=== PATIENT | female | born 1945 | race Caucasian/White ===

== ENCOUNTER 2016-07-25 07:01 | Inpatient (IN) | payer OTHER ==
--- NOTE | ~2016-07-25 | OP ---
Record Of Operation [facility] [address] [place]. [address] NAME: NADIA SPIVEY : 45 STATUS : [facility] PAT#: [id number] AGE: 70 ADM/REG DATE : 07/25/16 MR#: [id number] REPORT SERV DATE: 07/25/16 DICTATED BY: ADIN STANLEY DATE: 07/25/16 REPORT STATUS : Draft TRANSCRIBED BY: MODL DATE: 07/25/16 DATE OF PROCEDURE: 07/25/2016 SURGEON: Adin Stanley MD AGING DEPARTMENT SUPERVISOR: Aman. PREPROCEDURE DIAGNOSIS: Dehiscence of right AKA with necrotic wound edge and base. POSTPROCEDURE DIAGNOSIS: Dehiscence of right AKA with necrotic wound edge and base. PROCEDURE PERFORMED: 1. Debridement of skin, epidermis and subcutaneous tissue, less than 20 cm. 2. Debridement, sharp, of muscle and fascia, less than 20 cm. 3. VAC placement. ANESTHESIA: General. SPECIMENS: Necrotic tissue. ESTIMATED BLOOD LOSS: Minimal. COMPLICATIONS: None. INDICATIONS: Nadia Spivey is 70 years old. She recently had an AKA for severe PAD. She came back to the office with an open wound. We attempted wound care for this for several weeks, and it did not make progress. She was offered debridement with VAC placement. Risks, benefits, and alternatives were discussed. She understood and wished to proceed. OPERATIVE COURSE: The patient was brought to the operating room and placed in supine position on the operating room table. The patient had general anesthetic without complications. Right leg was prepped and draped in sterile fashion. A time-out was performed and identified correct patient, procedure, and site. We began by sharply debriding skin and subcutaneous tissue of the superior wound edge. We got this cleaned up and then controlled the bleeding with cautery. The deep base of the wound had fibrinous exudate as well as some fascia that needed to be debrided, this was done sharply. Once that was done, we used a pulse evacuator to pulse evacuate the wound. We pulse evacuated approximately 2 L of saline. We then fashioned a VAC to fit the wound, it was placed with benzoin and occlusive dressing. A track pad was placed and connected to the VAC machine, which worked appropriately and had no leak. The patient tolerated the procedure well. She was awakened and transferred to recovery in stable condition. [facility]/SARAI Record Of [place] [address] [place]. [address] NAME: NADIA SPIVEY : 45 STATUS : [facility] PAT#: [id number] AGE: 70 ADM/REG DATE : 07/25/16 MR#: [id number] REPORT SERV DATE: 07/25/16 DICTATED BY: ADIN STANLEY DATE: 07/25/16 REPORT STATUS : Draft TRANSCRIBED BY: MODL DATE: 07/25/16 Adin Stanley MD / [id number] CC: MD Amy Lee M.D.
--- NOTE | ~2016-07-25 | HP ---
History And Physical [place] [id number] [place]. [address] NAME: BRENNAN YUAN : 45 STATUS : ADM IN [facility]#: [id number] AGE: 70 ADM/REG DATE : 07/25/16 MR#: [id number] REPORT SERV DATE: 07/26/16 DICTATED BY: ADIN STANLEY DATE: 07/25/16 REPORT STATUS : Draft TRANSCRIBED BY: MODSeymour DATE: 07/25/16 DATE OF ADMISSION: 07/25/2016 SERVICE: Vascular. REASON FOR ADMISSION: Status post debridement of right AKA stump. HISTORY OF PRESENT ILLNESS: The patient is a 70-year-old lady who had an AKA done recently. She presented back to the office for a wound dehiscence. She was managed conservatively with dressing care and it has not improved. She was offered intervention. Risks, benefits and alternatives were discussed. PAST MEDICAL HISTORY: PAD, diabetes, hypertension, hyperlipidemia, vitamin B12 deficiency, osteoporosis, osteopenia, rheumatoid arthritis, depression, and GERD. PAST SURGICAL HISTORY: Includes bilateral knee replacement, right AKA, gallbladder removal, hysterectomy, right foot surgery, right elbow surgery, and left wrist surgery. SOCIAL HISTORY: Socially, she does not smoke, does not drink and she is . FAMILY HISTORY: Congestive heart failure in her mother, diabetes in her siblings, heart attack in her father. ALLERGIES: TO TAPE AND OXYCODONE. MEDICATIONS: Listed separately on the medication administration record. PHYSICAL EXAMINATION: GENERAL: The patient was supine in the stretcher. VITAL SIGNS: Her blood pressure was 147/80, her pulse was 71, respirations 18. Her oxygen saturation was 99%. She was pleasant without distress. CHEST: Clear to auscultation bilaterally. CARDIOVASCULAR: Regular rate and rhythm. ABDOMEN: Soft, nontender, nondistended without any obvious masses. HEENT: Her head was normocephalic, atraumatic. Her pupils were equal, round, reactive to light. SKIN: The right AKA had an opening with necrotic debris, both at the wound edge as well as deep in the wound. There was no pus or foul-smelling drainage. Remainder of her skin was intact. IMPRESSION AND PLAN: The patient is a 70-year-old. She will be admitted after debridement for a wound VAC placement. We will manage her diabetes in the hospital and we will restart her Xarelto. History And Physical [facility] [address] [place]. [address] NAME: BRENNAN YUAN : 45 STATUS : ADM IN PAT#: [id number] AGE: 70 ADM/REG DATE : 07/25/16 MR#: [id number] REPORT SERV DATE: 07/26/16 DICTATED BY: ADIN STANLEY DATE: 07/25/16 REPORT STATUS : Draft TRANSCRIBED BY: SARAI DATE: 07/25/16 [facility]/SARAI Adin Stanley MD / [id number] CC: MD Amy Lee M.D.
[~2016-07-25 07:01] MED LIST: ADVIL PO; AMARYL1 MG PO; ARAVA20 PO; ASAB PO; ASPERCREME TOP; CALCIUM PO; CALTRA600D PO; CARDCD120 PO; CORDARONE PO; CORICIDI2 OR; CORICIDI2 PO; CYANO1000T PO; FISH-EPA1000 MG PO; FORTAMET500 MG PO; GLUCOPHAGE1000 MG PO; IMOD PO; LIPITOR20 PO; LOP25 PO; LUTEIN ZEAXANTHIN PO; MICRONASE5 MG PO; NEUR300 PO; P5 PO; PCET PO; PLAQ200B PO; PLAVIX PO; PRAVAC PO; PRILO PO; PRINZIDE1 TA1 PO; ULTRAM50 PO; VITAMIN B-122500 MCG SL; VITAMIN D31000 UNIT PO; XARELTO20 MG PO; ZESTORETIC PO; [UNRECOGNIZED DRUG - OTHER]; [UNRECOGNIZED DRUG - OTHER] OPH
[2016-08-27] MEDS ORDERED: PACERONE100 MG PO (15:49)
[2016-09-26] MEDS ORDERED: ZOFRAN4 PO (12:59)
[2016-11-04] MEDS ORDERED: KAYEXUD PO (17:34)
[2016-11-04] MEDS ORDERED: NEUR300 PO (17:35)
[2016-11-04] MEDS ORDERED: LIPITOR20 PO (17:35)
[2016-11-04] MEDS ORDERED: LEVAQUIN5T PO (17:37)
[2016-11-04] MEDS ORDERED: NEUR600 PO (17:38)
[2016-11-04] MEDS ORDERED: AMOXIL500 MG PO (17:39)
[2016-11-04] MEDS ORDERED: PRILOSEC OTC20 MG PO (17:40)
[2016-11-04] MEDS ORDERED: PLAQ200B PO (17:41)
[2016-11-04] MEDS ORDERED: LOP25 PO (17:41)
[2016-11-04] MEDS ORDERED: FERROUS SULF325 M1 PO (17:42)
[2016-11-04] MEDS ORDERED: VITC500 PO (17:42)
[2016-11-04] MEDS ORDERED: PACERONE100 MG PO (17:43)
[2016-11-04] MEDS ORDERED: CARDCD120 PO (17:43)
[2016-11-04] MEDS ORDERED: ACIDOPHILU2 PO (17:43)
[2016-11-04] MEDS ORDERED: P5 PO (17:44)
[2016-11-04] MEDS ORDERED: PRIN10 PO (17:44)
[2016-11-04] MEDS ORDERED: CYMBALTA30 PO (17:45)
[2016-11-04] MEDS ORDERED: MULTIPLE VIT PO (17:45)
[2016-11-04] MEDS ORDERED: HCTZ12.5 PO (17:45)
[2016-11-04] MEDS ORDERED: GLUCPH PO (17:46)
[2016-11-04] MEDS ORDERED: ARAVA20 PO (17:47)
[2016-11-04] MEDS ORDERED: ROCEPH IM (17:47)
[2016-11-04] MEDS ORDERED: HUMALOG SC (17:49)
[2016-11-04] MEDS ORDERED: ASABAYER PO (17:51)
[2016-11-04] MEDS ORDERED: ZOFRAN8 PO (17:52)
[2016-11-04] MEDS ORDERED: PERCOCET 10/3251 TAB PO (17:52)
[2016-11-07] MEDS ORDERED: IODOSORB TOP (17:41)
[2016-11-07] MEDS ORDERED: ACET500CAP PO (17:47)
[2016-11-19] MEDS ORDERED: NEUR300 PO (21:16)
[2016-11-19] MEDS ORDERED: LIPITOR20 PO (21:17)
[2016-11-19] MEDS ORDERED: NEUR600 PO (21:17)
[2016-11-19] MEDS ORDERED: FERROUS SULF325 M1 PO (21:17)
[2016-11-19] MEDS ORDERED: PRILOSEC40 MG PO (21:18)
[2016-11-19] MEDS ORDERED: VITC500 PO (21:18)
[2016-11-19] MEDS ORDERED: LOP25 PO (21:19)
[2016-11-19] MEDS ORDERED: PLAQ200B PO (21:19)
[2016-11-19] MEDS ORDERED: MULTIVITAMI1 PO (21:20)
[2016-11-19] MEDS ORDERED: PACERONE100 MG PO (21:20)
[2016-11-19] MEDS ORDERED: CYMBALTA60 PO (21:20)
[2016-11-19] MEDS ORDERED: P5 PO (21:21)
[2016-11-19] MEDS ORDERED: GLUCPH PO (21:22)
[2016-11-19] MEDS ORDERED: PRIN10 PO (21:22)
[2016-11-19] MEDS ORDERED: CARDCD120 PO (21:46)
[2016-11-19] MEDS ORDERED: HUMALOG SC (21:50)
[2016-11-19] MEDS ORDERED: ARAVA20 PO (21:50)
[2016-11-19] MEDS ORDERED: ASABAYER PO (21:52)
[2016-11-19] MEDS ORDERED: PERCOCET 10/3251 TAB PO (21:52)
[2016-12-25] MEDS ORDERED: DSS PO (11:32)
[2016-12-25] MEDS ORDERED: ZINC220C PO (11:33)
[2016-12-25] MEDS ORDERED: XOPEN0.5ML INH ×2 (11:35→11:46)
[2016-12-25] MEDS ORDERED: MUCINEX600 MG PO (11:36)
[2016-12-25] MEDS ORDERED: DULERA 200 MCG/13 GM INH (11:37)
[2016-12-25] MEDS ORDERED: VITC500 PO (11:38)
[2016-12-25] MEDS ORDERED: ACIDOPHILUS PO (11:39)
[2016-12-25] MEDS ORDERED: LOP25 PO (11:41)
[2016-12-25] MEDS ORDERED: ASA5GR PO (11:42)
[2016-12-25] MEDS ORDERED: IMDUR30 PO (11:48)
[2016-12-25] MEDS ORDERED: MIRALAX POWDER1 PKT PO ×2 (11:51→11:59)
[2016-12-25] MEDS ORDERED: SPIRIVA INH (11:52)
[2016-12-25] MEDS ORDERED: CYANO1000T PO (11:53)
[2016-12-25] MEDS ORDERED: ZOFRAN ODT4 MG SL (11:55)
[2016-12-25] MEDS ORDERED: V2 PO (11:56)
[2016-12-25] MEDS ORDERED: L20 PO (11:58)
[2016-12-25] MEDS ORDERED: SENTAB PO (12:01)
[2016-12-25] MEDS ORDERED: LEVEMIR SC (12:17)
[2016-12-25] MEDS ORDERED: NORCO1 TAB PO (12:32)
[2016-12-30] MEDS ORDERED: PERCOCET 10/3251 TAB PO (12:15)
[2016-12-30] MEDS ORDERED: DSS PO (12:18)
== END 2016-07-26 14:42 | disposition home or self-care (01) | DRG 465 ==
LOC: SDC 07:01 → 2SO 11:02
PROVIDERS: Student in an Organized Health Care Education/Training Program
PROC: 0JBL0ZZ Excision of Right Upper Leg Subcutaneous Tissue and Fascia, Open Approach (ICD-10-PCS; principal; 2016-07-25 08:30)
DX: T87.53 Necrosis of amputation stump, right lower extremity (principal); I48.0 Paroxysmal atrial fibrillation; E11.9 Type 2 diabetes mellitus without complications; I10 Essential (primary) hypertension; T87.81 Dehiscence of amputation stump; I73.9 Peripheral vascular disease, unspecified; E78.5 Hyperlipidemia, unspecified; E53.8 Deficiency of other specified B group vitamins; M81.0 Age-related osteoporosis without current pathological fracture; M06.9 Rheumatoid arthritis, unspecified; F32.9 Major depressive disorder, single episode, unspecified; K21.9 Gastro-esophageal reflux disease without esophagitis; Z96.653 Presence of artificial knee joint, bilateral; Z79.01 Long term (current) use of anticoagulants; Z98.890 Other specified postprocedural states; Z82.49 Family history of ischemic heart disease and other diseases of the circulatory system; Z83.3 Family history of diabetes mellitus; Z88.5 Allergy status to narcotic agent
CPT/HCPCS: 80048; 82962; 85014; 85018; 93005; A9270-GY; G0463; J0690; J2250; J2270; J2370; J2710; J3010

== ENCOUNTER 2016-08-29 06:19 | Day surgery (SDC) | payer OTHER ==
[2016-08-28 11:14] LABS: HEMATOCRIT 31.5 % (36.0-48.0); HEMOGLOBIN 9.7 g/dL (12.0-16.0)
[2016-08-28 11:31] LABS: BUN (BLOOD UREA NITROGEN) 20 MG/DL (6-23); CALCIUM, SERUM 8.5 MG/DL (8.5-10.4); CHLORIDE, SERUM 104 MMOL/L (96-112); CO2 (CARBON DIOXIDE) 26 MMOL/L (24-34); CREATININE 0.95 MG/DL (0.55-1.02); GFR AFRICAN AMERICAN 70 ML/MIN (>=60); GFR NON AFRICAN AMERICAN 61 ML/MIN (>=60); GLUCOSE, SERUM 57 MG/DL (60-99); POTASSIUM, SERUM 4.1 MMOL/L (3.5-5.3); SODIUM, SERUM 140 MMOL/L (135-148)
--- NOTE | ~2016-08-29 | OP ---
Record Of Operation [facility] [address] [place]. [address] NAME: BRENNAN SPIVEY : 45 STATUS : [facility]#: [id number] AGE: 70 ADM/REG DATE : 08/29/16 MR#: [id number] REPORT SERV DATE: 09/03/16 DICTATED BY: ADIN STANLEY DATE: 09/02/16 REPORT STATUS : Draft TRANSCRIBED BY: MODL DATE: 09/02/16 DATE OF PROCEDURE: 08/29/2016 CHURCH BUSINESS ADMINISTRATOR: Rachael. PREPROCEDURE DIAGNOSIS: Necrotic wound, medial above-knee amputation. POSTPROCEDURE DIAGNOSIS: Necrotic wound, medial above-knee amputation. PROCEDURE PERFORMED: Debridement of skin and subcutaneous tissue, 20 cm or less, sharp debridement. ANESTHETIC: General. SPECIMENS: None. BLOOD LOSS: Minimal. COMPLICATIONS: None. INDICATIONS: Brennan Spivey is a 70-year-old, underwent AKA for ischemic vascular disease. She has had several wound healing problems, including a lateral edge problem that has been backed already. She opened up a portion of the wound medially and was seen with necrotic edges and soupy wound base. It was felt that she needed debridement to fully heal this. There was no cellulitis or pus. OPERATIVE COURSE: The patient was brought to the operating room and placed in supine position on the operating room table. The patient had general anesthetic without complications. Right leg was prepped and draped in sterile fashion. A time-out was performed, identified the correct patient, procedure, and site. We began by excising the affected area with an elliptical incision. We deepened this through the subcutaneous tissue and fat with the cautery. We shelled out the base of the wound with cautery. Once we had done this and passed the specimen off, it appeared that there was a clean healthy tissue that was viable underneath all this problem area. We irrigated the wound with saline. We then closed the deeper layers with interrupted 2-0 Vicryl suture. The skin was closed with running nylon suture. Sterile dressing was applied. Her VAC was reapplied to the lateral edge, which had good granulation tissue. The patient tolerated the procedure well. She was awakened and transferred to recovery in stable condition. [facility]/SARAI Adin Stanley MD Record Of Operation [address] [place]. [address] NAME: BRENNAN SPIVEY : 45 [facility] PAT#: [id number] AGE: 70 ADM/REG DATE : 08/29/16 MR#: [id number] REPORT SERV DATE: 09/03/16 DICTATED BY: ADIN STANLEY DATE: 09/02/16 REPORT STATUS : Draft TRANSCRIBED BY: MODL DATE: 09/02/16 / [id number] CC: MD Amy Lee M.D.
[~2016-08-29 06:19] MED LIST changes: +PACERONE100 MG PO
[2016-09-26] MEDS ORDERED: ZOFRAN4 PO (12:59)
[2016-11-04] MEDS ORDERED: KAYEXUD PO (17:34)
[2016-11-04] MEDS ORDERED: NEUR300 PO (17:35)
[2016-11-04] MEDS ORDERED: LIPITOR20 PO (17:35)
[2016-11-04] MEDS ORDERED: LEVAQUIN5T PO (17:37)
[2016-11-04] MEDS ORDERED: NEUR600 PO (17:38)
[2016-11-04] MEDS ORDERED: AMOXIL500 MG PO (17:39)
[2016-11-04] MEDS ORDERED: PRILOSEC OTC20 MG PO (17:40)
[2016-11-04] MEDS ORDERED: LOP25 PO (17:41)
[2016-11-04] MEDS ORDERED: PLAQ200B PO (17:41)
[2016-11-04] MEDS ORDERED: VITC500 PO (17:42)
[2016-11-04] MEDS ORDERED: FERROUS SULF325 M1 PO (17:42)
[2016-11-04] MEDS ORDERED: PACERONE100 MG PO (17:43)
[2016-11-04] MEDS ORDERED: ACIDOPHILU2 PO (17:43)
[2016-11-04] MEDS ORDERED: CARDCD120 PO (17:43)
[2016-11-04] MEDS ORDERED: PRIN10 PO (17:44)
[2016-11-04] MEDS ORDERED: P5 PO (17:44)
[2016-11-04] MEDS ORDERED: MULTIPLE VIT PO (17:45)
[2016-11-04] MEDS ORDERED: CYMBALTA30 PO (17:45)
[2016-11-04] MEDS ORDERED: HCTZ12.5 PO (17:45)
[2016-11-04] MEDS ORDERED: GLUCPH PO (17:46)
[2016-11-04] MEDS ORDERED: ROCEPH IM (17:47)
[2016-11-04] MEDS ORDERED: ARAVA20 PO (17:47)
[2016-11-04] MEDS ORDERED: HUMALOG SC (17:49)
[2016-11-04] MEDS ORDERED: ASABAYER PO (17:51)
[2016-11-04] MEDS ORDERED: ZOFRAN8 PO (17:52)
[2016-11-04] MEDS ORDERED: PERCOCET 10/3251 TAB PO (17:52)
[2016-11-07] MEDS ORDERED: IODOSORB TOP (17:41)
[2016-11-07] MEDS ORDERED: ACET500CAP PO (17:47)
[2016-11-19] MEDS ORDERED: NEUR300 PO (21:16)
[2016-11-19] MEDS ORDERED: NEUR600 PO (21:17)
[2016-11-19] MEDS ORDERED: FERROUS SULF325 M1 PO (21:17)
[2016-11-19] MEDS ORDERED: LIPITOR20 PO (21:17)
[2016-11-19] MEDS ORDERED: PRILOSEC40 MG PO (21:18)
[2016-11-19] MEDS ORDERED: VITC500 PO (21:18)
[2016-11-19] MEDS ORDERED: PLAQ200B PO (21:19)
[2016-11-19] MEDS ORDERED: LOP25 PO (21:19)
[2016-11-19] MEDS ORDERED: CYMBALTA60 PO (21:20)
[2016-11-19] MEDS ORDERED: MULTIVITAMI1 PO (21:20)
[2016-11-19] MEDS ORDERED: PACERONE100 MG PO (21:20)
[2016-11-19] MEDS ORDERED: P5 PO (21:21)
[2016-11-19] MEDS ORDERED: PRIN10 PO (21:22)
[2016-11-19] MEDS ORDERED: GLUCPH PO (21:22)
[2016-11-19] MEDS ORDERED: CARDCD120 PO (21:46)
[2016-11-19] MEDS ORDERED: ARAVA20 PO (21:50)
[2016-11-19] MEDS ORDERED: HUMALOG SC (21:50)
[2016-11-19] MEDS ORDERED: ASABAYER PO (21:52)
[2016-11-19] MEDS ORDERED: PERCOCET 10/3251 TAB PO (21:52)
[2016-12-25] MEDS ORDERED: DSS PO (11:32)
[2016-12-25] MEDS ORDERED: ZINC220C PO (11:33)
[2016-12-25] MEDS ORDERED: XOPEN0.5ML INH ×2 (11:35→11:46)
[2016-12-25] MEDS ORDERED: MUCINEX600 MG PO (11:36)
[2016-12-25] MEDS ORDERED: DULERA 200 MCG/13 GM INH (11:37)
[2016-12-25] MEDS ORDERED: VITC500 PO (11:38)
[2016-12-25] MEDS ORDERED: ACIDOPHILUS PO (11:39)
[2016-12-25] MEDS ORDERED: LOP25 PO (11:41)
[2016-12-25] MEDS ORDERED: ASA5GR PO (11:42)
[2016-12-25] MEDS ORDERED: IMDUR30 PO (11:48)
[2016-12-25] MEDS ORDERED: MIRALAX POWDER1 PKT PO ×2 (11:51→11:59)
[2016-12-25] MEDS ORDERED: SPIRIVA INH (11:52)
[2016-12-25] MEDS ORDERED: CYANO1000T PO (11:53)
[2016-12-25] MEDS ORDERED: ZOFRAN ODT4 MG SL (11:55)
[2016-12-25] MEDS ORDERED: V2 PO (11:56)
[2016-12-25] MEDS ORDERED: L20 PO (11:58)
[2016-12-25] MEDS ORDERED: SENTAB PO (12:01)
[2016-12-25] MEDS ORDERED: LEVEMIR SC (12:17)
[2016-12-25] MEDS ORDERED: NORCO1 TAB PO (12:32)
[2016-12-30] MEDS ORDERED: PERCOCET 10/3251 TAB PO (12:15)
[2016-12-30] MEDS ORDERED: DSS PO (12:18)
== END 2016-08-29 13:27 | disposition home or self-care (01) ==
LOC: SDC 06:19
PROVIDERS: Student in an Organized Health Care Education/Training Program
PROC: 0JQN0ZZ Repair Right Lower Leg Subcutaneous Tissue and Fascia, Open Approach (ICD-10-PCS; principal; 2016-08-29 07:45)
DX: T81.31XA Disruption of external operation (surgical) wound, not elsewhere classified, initial encounter (principal); E78.5 Hyperlipidemia, unspecified; M81.0 Age-related osteoporosis without current pathological fracture; M85.80 Other specified disorders of bone density and structure, unspecified site; M06.9 Rheumatoid arthritis, unspecified; F32.9 Major depressive disorder, single episode, unspecified; K21.9 Gastro-esophageal reflux disease without esophagitis; I25.10 Atherosclerotic heart disease of native coronary artery without angina pectoris; D64.9 Anemia, unspecified; Z96.653 Presence of artificial knee joint, bilateral; Z90.49 Acquired absence of other specified parts of digestive tract; Z90.710 Acquired absence of both cervix and uterus; Z98.890 Other specified postprocedural states; Z82.3 Family history of stroke; Z82.49 Family history of ischemic heart disease and other diseases of the circulatory system; Z88.5 Allergy status to narcotic agent; Z79.82 Long term (current) use of aspirin; Z79.899 Other long term (current) drug therapy
CPT/HCPCS: 80048; 82962; 85014; 85018; 93005; J0330; J0690; J2270; J2405; J3010

== ENCOUNTER 2016-09-15 13:33 | Inpatient (IN) | payer OTHER ==
--- NOTE | ~2016-09-15 | DS ---
Discharge Summary [facility] [address] [place]. [address] NAME: BRENNAN YUAN : 45 STATUS : DIS IN PAT#: [id number] AGE: 70 ADM/REG DATE : 09/15/16 MR#: [id number] REPORT SERV DATE: 10/02/16 DICTATED BY: ADIN STANLEY DATE: 10/01/16 REPORT STATUS : Draft TRANSCRIBED BY: SARAI DATE: 10/01/16 Data Collection from hospitalization DISCHARGE DIAGNOSES: 1. Left tibial vessels unsuitable for repair or bypass-left foot ischemia. 2. Diabetes. 3. Hypertension. 4. Hyperlipidemia. 5. Vitamin B12 deficiency. 6. Osteoporosis. 7. Osteopenia. 8. Peripheral vascular disease. 9. Rheumatoid arthritis. 10.Depression. 11.Gastroesophageal reflux disease. CONSULTATIONS: None. PROCEDURES PERFORMED: 1. Exploration of left popliteal and proximal tibial artery, 09/17/2016. 2. Exploration, left popliteal/tibial vessels, 09/17/2016. DISCHARGE MEDICATIONS: Pacerone 100 mg every morning, aspirin 81 mg every morning, Lipitor 20 mg every evening, Cardizem CD 120 mg every morning, Neurontin 300 mg twice a day, Amaryl 1 mg every morning, [place] 5/325 one tablet every six hours as needed, Plaquenil 200 mg twice a day, Arava 20 mg every 48 hours, Prinzide half tablet every morning, Imodium 2 mg as needed, Glucophage 1000 mg twice a day, Lopressor 25 mg every morning, Prilosec 20 mg every morning, Deltasone 5 mg every morning, Xarelto 20 mg with supper, GenTeal one drop as needed. CONDITION AT DISCHARGE: Stable. DISPOSITION: The patient was discharged home on an 1800-calorie diabetic diet with activities as instructed. She would follow up with me, 10/01/2016. HOSPITAL COURSE: This is a 70-year-old female, who had recently undergone an arteriogram to see if she could have improvement of circulation due to gangrene on the tip of her toe and severe peripheral arterial disease. This was unsuccessful and ultimately, she began to have foot ischemia on the dorsum of the foot. She was offered exploration of the popliteal and tibial arteries to see if she had vessels suitable for bypass and/or endarterectomy. She agreed to proceed. She was admitted to the hospital at this time for further evaluation and treatment. Upon admission, she was taken to the operating room, where she underwent the above-mentioned procedure. She tolerated this well and there were no complications. The following day, the patient said her left leg felt like it was asleep. Heparin was continued. The left foot was not doing well. She began to have some mottling. It was felt that she would need to undergo exploration of left popliteal/tibial vessels. The patient was taken to the Discharge Summary [address] [place]. [address] NAME: BRENNAN YUAN : 45 STATUS : DIS IN PAT#: [id number] AGE: 70 ADM/REG DATE : 09/15/16 MR#: [id number] REPORT SERV DATE: 10/02/16 DICTATED BY: ADIN STANLEY DATE: 10/01/16 REPORT STATUS : Draft TRANSCRIBED BY: SARAI DATE: 10/01/16 operating room, where she underwent the above-mentioned procedure. She tolerated this well and there were no complications. On the , the left foot was still not progressing. Pain was well controlled. She was afebrile. We discussed below-knee amputation on the left versus watchful waiting. She was complaining of some mild pain at the left-sided lower leg incision site. This was controlled with oral pain medications. The patient has a history of right above-knee amputation. Heparin was continued. The patient was going to stay over the weekend to see if her foot would improve. On 09/20/2016, she had mild pain and numbness of the left foot. The left foot ischemia was stable. There was mottling. Code status was discussed with the patient. The patient elected to be a DNR code status. Heparin drip continued. The following day, she still had stable ischemia of the left foot. Pain was slightly worse. The patient was considering amputation. She was going to be held n.p.o. after midnight in case she elected to proceed with surgery. On 09/22/2016, she did have some increased pain in the lateral foot. There was no ischemic tissue. The patient expressed her desire to go home for a bit and then return when amputation was necessary. Discharge instructions were given. Due to her stable condition, she was discharged home with the above-stated instructions. Information collected by: Scarlet Rhodes I submit the above information as my discharge summary. TG/MODL Adin Stanley MD / [id number] CC: MD Amy Lee M.D.
--- NOTE | ~2016-09-15 | OP ---
Record Of Operation [facility] [address] [place]. [address] NAME: BRENNAN SPIVEY : 45 STATUS : DIS IN PAT#: [id number] AGE: 71 ADM/REG DATE : 09/15/16 MR#: [id number] REPORT SERV DATE: 11/19/16 DICTATED BY: ADIN STANLEY DATE: 11/19/16 REPORT STATUS : Draft TRANSCRIBED BY: MODL DATE: 11/19/16 DATE OF PROCEDURE: 09/15/2016 ATTENDING: Adin Stanley M.D. ACCOUNTS RECEIVABLE COORDINATOR: None. PREPROCEDURE DIAGNOSIS: Rest pain, left lower extremity. POSTPROCEDURE DIAGNOSIS: Severe SFA and popliteal stenosis, anterior tibial and peroneal artery occlusion. PROCEDURES PERFORMED: 1. Ultrasound access, right common femoral artery. 2. Aortogram. 3. Left lower extremity arteriogram. 4. Atherectomy of the left SFA and popliteal artery. 5. Angioplasty of the SFA with a 5-mm balloon. 6. Angioplasty of the pop with a 4-mm balloon. ANESTHETIC: MAC and local. SPECIMENS: None. BLOOD LOSS: Minimal. COMPLICATIONS: None. INDICATIONS: Ms. Spivey is 70 years old and suffers from rest pain of both lower extremities. She has had the right one previously operated on and now, the left one deserves treatment. She was offered intervention. Risks, benefits, and alternatives were discussed. She understood and wished to proceed. OPERATIVE COURSE: The patient was brought to the operating room and placed in supine position on the operating room table. The patient had MAC anesthetic without complications. Bilateral groins were prepped and draped in sterile fashion. A time-out was performed and identified the correct patient, procedure, and site. We began by using ultrasound to identify the right common femoral artery. It was patent with moderate disease. We anesthetized the skin and accessed the artery under ultrasound guidance. Once we had access, a wire was passed into the abdominal aorta. The needle was removed and we placed a 5-[place] sheath. Over the wire, we passed the UF catheter, passed it to the L1 vertebral level, performed aortography. This demonstrated a grossly patent aorta and iliac segment on both sides with no significant stenosis in the common, external, and internal iliac arteries. The arteries were diffusely calcified. We then used a wire and catheter to guide the system over to the left common femoral artery, where a left lower extremity arteriogram demonstrated patency of the common femoral, profunda femoris artery. The SFA was diffusely Record Of Operation [facility] [address] [place]. [address] NAME: BRENNAN SPIVEY : 45 STATUS : DIS IN PAT#: [id number] AGE: 71 ADM/REG DATE : 09/15/16 MR#: [id number] REPORT SERV DATE: 11/19/16 DICTATED BY: ADIN STANLEY DATE: 11/19/16 REPORT STATUS : Draft TRANSCRIBED BY: MODSeymour DATE: 11/19/16 calcified and severely diseased distally into the popliteal artery. There was no runoff through the anterior tibial or peroneal arteries. The posterior tibial looked diminutive and moderately diseased. We gave IV heparin and allowed adequate time for circulation. We sized up to a 6-[place] sheath, brought it up and over the aortic bifurcation to the left common femoral artery. We then brought a wire and catheter down the left leg. We were able to traverse the severely diseased areas in the SFA and popliteal artery. We switched out wires to a Viper wire and performed atherectomy with a CSI device on low and medium speed settings. After this, we performed angioplasty of the SFA and popliteal artery using a combination of 5 mm balloons and 4 mm balloons. This gave an improved appearance to the above knee segment of circulation with better overall luminal gain. Runoff was still through the posterior tibial artery. Satisfied with the intervention, wires and catheters were withdrawn. The sheath was wired out and brought over to the right side. A common femoral arteriogram demonstrated small artery with severe disease. We elected to pull out the sheath and hold manual pressure. This was done for 20 minutes, after which the groin was hemostatic. A pressure dressing was applied. The patient tolerated the procedure well. She was awakened and transferred to Recovery in stable condition. [facility]/SARAI Adin Stanley MD / [id number] CC: MD Amy Lee M.D.
--- NOTE | ~2016-09-15 | OP ---
Record Of Operation [facility] [address] [place]. [address] NAME: NADIA SPIVEY : 45 STATUS : ADM IN PAT#: [id number] AGE: 70 ADM/REG DATE : 09/15/16 MR#: [id number] REPORT SERV DATE: 09/17/16 DICTATED BY: ADIN STANLEY DATE: 09/17/16 REPORT STATUS : Draft TRANSCRIBED BY: MODL DATE: 09/17/16 DATE OF PROCEDURE: 09/17/2016 ATTENDING: Adin Stanley MD. SALES REPRESENTATIVE BUSINESS COURSES: Yony. PREPROCEDURE DIAGNOSIS: Left foot ischemia. POSTPROCEDURE DIAGNOSIS: Tibial vessels unsuitable for repair or bypass. PROCEDURE: Exploration of left popliteal and proximal tibial arteries. ANESTHETIC: General. SPECIMENS: None. ESTIMATED BLOOD LOSS: Minimal. COMPLICATIONS: None. INDICATIONS: Nadia Spivey is 70-year-old white female. She recently underwent arteriogram to see if she could have improvement on circulation due to gangrene on the tip of her toe and severe PAD. This was unsuccessful and ultimately she has begun to have foot ischemia on the dorsum of the foot. She was offered exploration of the popliteal and tibial arteries to see if she had vessels suitable for bypass and/or endarterectomy. Risks, benefits, and alternatives were discussed with her and her . They understood and wished to proceed. OPERATIVE COURSE: The patient was brought to the operating room and placed in supine position on the operating room table. The patient had general anesthetic without complications. Left leg was prepped and draped in a sterile fashion. A time-out was performed. Identified the correct patient, procedure, and site. We began by using the ultrasound to identify the course of the saphenous vein and it was sub 3 mm vein that was identified and kept out of the way of the incision. We made an incision at the medial calf one-to-two fingerbreadths posterior to the tibial edge. We deepened this incision with cautery down to the fascia. The fascia was incised. We entered the popliteal space. We took down some of the soleus muscle off the tibial surface. We identified the popliteal artery, and it was rock hard and dense. We dissected with cephalad and caudad. We took down some of the vein branches including the anterior tibial vein. This freed up for entire exposure of the distal popliteal artery, anterior tibial, and tibioperoneal trunk, peroneal and posterior tibial branches. We explored all these branches and they were all densely calcified circumferentially without any soft spots or areas that appeared amenable to intervention. We went distal about fci down the calf without any further improvement in the quality of the blood vessel. It was felt that these vessels were not suitable for intervention. The wound was irrigated. The fascia was closed with running Vicryl suture. Record Of Operation [facility] [address] [facility] [place]. [address] NAME: NADIA SPIVEY : 45 STATUS : ADM IN PAT#: [id number] AGE: 70 ADM/REG DATE : 09/15/16 MR#: [id number] REPORT SERV DATE: 09/17/16 DICTATED BY: ADIN STANLEY DATE: 09/17/16 REPORT STATUS : Draft TRANSCRIBED BY: SARAI DATE: 09/17/16 The subdermal layers were closed with interrupted Vicryl suture. The skin was closed with subcuticular Monocryl. Sterile dressing was applied. The patient tolerated the procedure well. She was awakened and transferred to recovery in stable condition. [facility]/SARAI Adin Stanley MD / [id number] CC: MD Amy Lee M.D.
[2016-09-15 14:07] LABS: HEMATOCRIT 31.7 % (36.0-48.0); HEMOGLOBIN 9.9 g/dL (12.0-16.0)
[2016-09-15 14:23] LABS: CHLORIDE, SERUM 103 MMOL/L (96-112); CO2 (CARBON DIOXIDE) 28 MMOL/L (24-34); CREATININE 1.19 MG/DL (0.55-1.02); GFR AFRICAN AMERICAN 54 ML/MIN (>=60); GFR NON AFRICAN AMERICAN 46 ML/MIN (>=60); GLUCOSE, SERUM 65 MG/DL (60-99); SODIUM, SERUM 140 MMOL/L (135-148)
[2016-09-15 14:24] LABS: BUN (BLOOD UREA NITROGEN) 16 MG/DL (6-23); CALCIUM, SERUM 6.9 MG/DL (8.5-10.4)
[2016-09-15 18:18] LABS: INTERNATIONAL NORMAL RATI 1.1 UNITS (-); PROTIME (NOT ORD) 14.5 SEC (12.0-14.5)
[2016-09-15 18:19] LABS: PARTIAL THROMBO TIME 89.2 SEC (22.5-37.2)
[2016-09-15 18:43] LABS: HEMATOCRIT 31.7 % (36.0-48.0); HEMOGLOBIN 9.8 g/dL (12.0-16.0)
[2016-09-16 06:00] LABS: BASOPHILS 0.5 %; BASOPHILS ABSOLUTE 0.06 10/3/uL (0.0-0.16); EOSINOPHILS 1.9 %; EOSINOPHILS ABSOLUTE 0.24 10/3/uL (0.0-0.53); HEMATOCRIT 31.7 % (36.0-48.0); HEMOGLOBIN 9.7 g/dL (12.0-16.0); IMMATURE GRANULOCYTES 0.4 %; IMMATURE GRANULOCYTES ABSOLUTE 0.05 10/3/uL (0.0-0.11); LYMPHOCYTES 19.4 %; LYMPHOCYTES ABSOLUTE 2.47 10/3/uL (0.67-4.30); MEAN CORPUS HGB CONC 30.6 g/dL (32.0-36.0); MEAN CORPUSCULAR HEMOGLOB 27.7 pg (26.0-34.0); MEAN CORPUSCULAR VOLUME 90.6 fL (80-100); MEAN PLATELET VOLUME 10.2 fL (9.2-13.0); MONOCYTES 9.7 %; MONOCYTES ABSOLUTE 1.24 10/3/uL (0.21-1.20); NEUTROPHILS 68.1 %; RBC DISTRIBUTION WIDTH 15.9 % (12.0-16.0); WHITE BLOOD CELLS 12.8 10/3/uL (4.5-10.5)
[2016-09-16 06:05] LABS: MANUAL DIFF NO %; PLATELET COUNT 163 10/3/uL (150-400)
[2016-09-16 07:02] LABS: BUN (BLOOD UREA NITROGEN) 12 MG/DL (6-23); CALCIUM, SERUM 7.1 MG/DL (8.5-10.4); CHLORIDE, SERUM 106 MMOL/L (96-112); CO2 (CARBON DIOXIDE) 25 MMOL/L (24-34); CREATININE 0.89 MG/DL (0.55-1.02); GFR AFRICAN AMERICAN 76 ML/MIN (>=60); GFR NON AFRICAN AMERICAN 66 ML/MIN (>=60); GLUCOSE, SERUM 71 MG/DL (60-99); POTASSIUM, SERUM 3.7 MMOL/L (3.5-5.3); SODIUM, SERUM 142 MMOL/L (135-148)
[2016-09-18 06:07] LABS: BASOPHILS 0.1 %; BASOPHILS ABSOLUTE 0.02 10/3/uL (0.0-0.16); EOSINOPHILS 0 %; HEMATOCRIT 27.8 % (36.0-48.0); HEMOGLOBIN 8.9 g/dL (12.0-16.0); IMMATURE GRANULOCYTES 0.5 %; IMMATURE GRANULOCYTES ABSOLUTE 0.08 10/3/uL (0.0-0.11); LYMPHOCYTES 4.2 %; LYMPHOCYTES ABSOLUTE 0.72 10/3/uL (0.67-4.30); MANUAL DIFF NO %; MEAN CORPUSCULAR HEMOGLOB 28.4 pg (26.0-34.0); MEAN CORPUSCULAR VOLUME 88.8 fL (80-100); MEAN PLATELET VOLUME 9.9 fL (9.2-13.0); MONOCYTES ABSOLUTE 1.71 10/3/uL (0.21-1.20); NEUTROPHILS 85.2 %; NEUTROPHILS ABSOLUTE 14.52 10/3/uL (2.02-8.40); PLATELET COUNT 201 10/3/uL (150-400); RBC DISTRIBUTION WIDTH 15.9 % (12.0-16.0); RED CELL COUNT 3.13 10/6/uL (4.0-5.6); WHITE BLOOD CELLS 17.1 10/3/uL (4.5-10.5)
[2016-09-18 06:15] LABS: BUN (BLOOD UREA NITROGEN) 9 MG/DL (6-23); CALCIUM, SERUM 7.3 MG/DL (8.5-10.4); CHLORIDE, SERUM 106 MMOL/L (96-112); CO2 (CARBON DIOXIDE) 27 MMOL/L (24-34); CREATININE 0.71 MG/DL (0.55-1.02); GFR AFRICAN AMERICAN 100 ML/MIN (>=60); GFR NON AFRICAN AMERICAN 86 ML/MIN (>=60); POTASSIUM, SERUM 4.2 MMOL/L (3.5-5.3); SODIUM, SERUM 142 MMOL/L (135-148)
[2016-09-18 06:17] LABS: GLUCOSE, SERUM 117 MG/DL (60-99)
[2016-09-19 05:17] LABS: BASOPHILS 0.1 %; BASOPHILS ABSOLUTE 0.01 10/3/uL (0.0-0.16); EOSINOPHILS 0.1 %; EOSINOPHILS ABSOLUTE 0.01 10/3/uL (0.0-0.53); HEMATOCRIT 25.6 % (36.0-48.0); HEMOGLOBIN 7.9 g/dL (12.0-16.0); IMMATURE GRANULOCYTES 0.4 %; IMMATURE GRANULOCYTES ABSOLUTE 0.07 10/3/uL (0.0-0.11); LYMPHOCYTES 10.8 %; LYMPHOCYTES ABSOLUTE 1.86 10/3/uL (0.67-4.30); MEAN CORPUS HGB CONC 30.9 g/dL (32.0-36.0); MEAN CORPUSCULAR HEMOGLOB 27.9 pg (26.0-34.0); MEAN CORPUSCULAR VOLUME 90.5 fL (80-100); MEAN PLATELET VOLUME 9.9 fL (9.2-13.0); MONOCYTES 12.9 %; MONOCYTES ABSOLUTE 2.21 10/3/uL (0.21-1.20); NEUTROPHILS 75.7 %; NEUTROPHILS ABSOLUTE 13.02 10/3/uL (2.02-8.40); PLATELET COUNT 224 10/3/uL (150-400); RED CELL COUNT 2.83 10/6/uL (4.0-5.6); WHITE BLOOD CELLS 17.2 10/3/uL (4.5-10.5)
[2016-09-19 05:20] LABS: MANUAL DIFF NO %
[2016-09-19 05:27] LABS: CHLORIDE, SERUM 106 MMOL/L (96-112); CO2 (CARBON DIOXIDE) 23 MMOL/L (24-34); CREATININE 0.95 MG/DL (0.55-1.02); GFR AFRICAN AMERICAN 70 ML/MIN (>=60); GFR NON AFRICAN AMERICAN 61 ML/MIN (>=60); POTASSIUM, SERUM 4.2 MMOL/L (3.5-5.3); SODIUM, SERUM 139 MMOL/L (135-148)
[2016-09-19 05:31] LABS: BUN (BLOOD UREA NITROGEN) 15 MG/DL (6-23); CALCIUM, SERUM 6.7 MG/DL (8.5-10.4); GLUCOSE, SERUM 85 MG/DL (60-99)
[2016-09-20 07:07] LABS: BASOPHILS 0.2 %; BASOPHILS ABSOLUTE 0.02 10/3/uL (0.0-0.16); EOSINOPHILS 1.1 %; EOSINOPHILS ABSOLUTE 0.14 10/3/uL (0.0-0.53); HEMATOCRIT 27.1 % (36.0-48.0); HEMOGLOBIN 8.2 g/dL (12.0-16.0); IMMATURE GRANULOCYTES 0.5 %; IMMATURE GRANULOCYTES ABSOLUTE 0.06 10/3/uL (0.0-0.11); LYMPHOCYTES 23.5 %; LYMPHOCYTES ABSOLUTE 3.02 10/3/uL (0.67-4.30); MEAN CORPUS HGB CONC 30.3 g/dL (32.0-36.0); MEAN CORPUSCULAR HEMOGLOB 27.9 pg (26.0-34.0); MEAN CORPUSCULAR VOLUME 92.2 fL (80-100); MEAN PLATELET VOLUME 10.3 fL (9.2-13.0); MONOCYTES ABSOLUTE 1.54 10/3/uL (0.21-1.20); NEUTROPHILS 62.7 %; NEUTROPHILS ABSOLUTE 8.05 10/3/uL (2.02-8.40); PLATELET COUNT 229 10/3/uL (150-400); RBC DISTRIBUTION WIDTH 16.1 % (12.0-16.0); RED CELL COUNT 2.94 10/6/uL (4.0-5.6); WHITE BLOOD CELLS 12.8 10/3/uL (4.5-10.5)
[2016-09-20 07:20] LABS: MANUAL DIFF NO %
[2016-09-22 08:43] LABS: HEMATOCRIT 27.9 % (36.0-48.0); HEMOGLOBIN 8.5 g/dL (12.0-16.0); MEAN CORPUS HGB CONC 30.5 g/dL (32.0-36.0); MEAN CORPUSCULAR HEMOGLOB 28.1 pg (26.0-34.0); MEAN CORPUSCULAR VOLUME 92.4 fL (80-100); MEAN PLATELET VOLUME 9.8 fL (9.2-13.0); PLATELET COUNT 252 10/3/uL (150-400); RBC DISTRIBUTION WIDTH 15.9 % (12.0-16.0); RED CELL COUNT 3.02 10/6/uL (4.0-5.6); WHITE BLOOD CELLS 11.2 10/3/uL (4.5-10.5)
[2016-09-22 08:48] LABS: MANUAL DIFF YES %
[2016-09-22 09:10] LABS: HYPOCHROMIA 1+ (3-10/OIF) (0-2/OIF); LYMPHOCYTES 20 %; LYMPHOCYTES ABSOLUTE (CALC) 2.24 10/3/uL (0.67-4.30); MONOCYTES 11 %; MONOCYTES ABSOLUTE (CALC) 1.23 10/3/uL (0.21-1.20); NEUTROPHILS ABSOLUTE (CALC) 7.73 10/3/uL (2.02-8.40); PLATELET ESTIMATE ADQ (ADEQUATE); SEGMENTED NEUTROPHIL (0) 69 %; TOTAL NUCLEATED CELLS 100
[2016-09-22 10:36] LABS: CHLORIDE, SERUM 106 MMOL/L (96-112); GFR AFRICAN AMERICAN 107 ML/MIN (>=60); GFR NON AFRICAN AMERICAN 92 ML/MIN (>=60); POTASSIUM, SERUM 4.5 MMOL/L (3.5-5.3); SODIUM, SERUM 142 MMOL/L (135-148)
[2016-09-22 10:37] LABS: BUN (BLOOD UREA NITROGEN) 9 MG/DL (6-23); CALCIUM, SERUM 7.7 MG/DL (8.5-10.4); CO2 (CARBON DIOXIDE) 29 MMOL/L (24-34); GLUCOSE, SERUM 70 MG/DL (60-99)
[2016-09-26] MEDS ORDERED: ZOFRAN4 PO (12:59)
[2016-11-04] MEDS ORDERED: KAYEXUD PO (17:34)
[2016-11-04] MEDS ORDERED: NEUR300 PO (17:35)
[2016-11-04] MEDS ORDERED: LIPITOR20 PO (17:35)
[2016-11-04] MEDS ORDERED: LEVAQUIN5T PO (17:37)
[2016-11-04] MEDS ORDERED: NEUR600 PO (17:38)
[2016-11-04] MEDS ORDERED: AMOXIL500 MG PO (17:39)
[2016-11-04] MEDS ORDERED: PRILOSEC OTC20 MG PO (17:40)
[2016-11-04] MEDS ORDERED: PLAQ200B PO (17:41)
[2016-11-04] MEDS ORDERED: LOP25 PO (17:41)
[2016-11-04] MEDS ORDERED: VITC500 PO (17:42)
[2016-11-04] MEDS ORDERED: FERROUS SULF325 M1 PO (17:42)
[2016-11-04] MEDS ORDERED: CARDCD120 PO (17:43)
[2016-11-04] MEDS ORDERED: PACERONE100 MG PO (17:43)
[2016-11-04] MEDS ORDERED: ACIDOPHILU2 PO (17:43)
[2016-11-04] MEDS ORDERED: PRIN10 PO (17:44)
[2016-11-04] MEDS ORDERED: P5 PO (17:44)
[2016-11-04] MEDS ORDERED: MULTIPLE VIT PO (17:45)
[2016-11-04] MEDS ORDERED: CYMBALTA30 PO (17:45)
[2016-11-04] MEDS ORDERED: HCTZ12.5 PO (17:45)
[2016-11-04] MEDS ORDERED: GLUCPH PO (17:46)
[2016-11-04] MEDS ORDERED: ARAVA20 PO (17:47)
[2016-11-04] MEDS ORDERED: ROCEPH IM (17:47)
[2016-11-04] MEDS ORDERED: HUMALOG SC (17:49)
[2016-11-04] MEDS ORDERED: ASABAYER PO (17:51)
[2016-11-04] MEDS ORDERED: PERCOCET 10/3251 TAB PO (17:52)
[2016-11-04] MEDS ORDERED: ZOFRAN8 PO (17:52)
[2016-11-07] MEDS ORDERED: IODOSORB TOP (17:41)
[2016-11-07] MEDS ORDERED: ACET500CAP PO (17:47)
[2016-11-19] MEDS ORDERED: NEUR300 PO (21:16)
[2016-11-19] MEDS ORDERED: FERROUS SULF325 M1 PO (21:17)
[2016-11-19] MEDS ORDERED: LIPITOR20 PO (21:17)
[2016-11-19] MEDS ORDERED: NEUR600 PO (21:17)
[2016-11-19] MEDS ORDERED: VITC500 PO (21:18)
[2016-11-19] MEDS ORDERED: PRILOSEC40 MG PO (21:18)
[2016-11-19] MEDS ORDERED: PLAQ200B PO (21:19)
[2016-11-19] MEDS ORDERED: LOP25 PO (21:19)
[2016-11-19] MEDS ORDERED: PACERONE100 MG PO (21:20)
[2016-11-19] MEDS ORDERED: CYMBALTA60 PO (21:20)
[2016-11-19] MEDS ORDERED: MULTIVITAMI1 PO (21:20)
[2016-11-19] MEDS ORDERED: P5 PO (21:21)
[2016-11-19] MEDS ORDERED: PRIN10 PO (21:22)
[2016-11-19] MEDS ORDERED: GLUCPH PO (21:22)
[2016-11-19] MEDS ORDERED: CARDCD120 PO (21:46)
[2016-11-19] MEDS ORDERED: ARAVA20 PO (21:50)
[2016-11-19] MEDS ORDERED: HUMALOG SC (21:50)
[2016-11-19] MEDS ORDERED: ASABAYER PO (21:52)
[2016-11-19] MEDS ORDERED: PERCOCET 10/3251 TAB PO (21:52)
[2016-12-25] MEDS ORDERED: DSS PO (11:32)
[2016-12-25] MEDS ORDERED: ZINC220C PO (11:33)
[2016-12-25] MEDS ORDERED: XOPEN0.5ML INH ×2 (11:35→11:46)
[2016-12-25] MEDS ORDERED: MUCINEX600 MG PO (11:36)
[2016-12-25] MEDS ORDERED: DULERA 200 MCG/13 GM INH (11:37)
[2016-12-25] MEDS ORDERED: VITC500 PO (11:38)
[2016-12-25] MEDS ORDERED: ACIDOPHILUS PO (11:39)
[2016-12-25] MEDS ORDERED: LOP25 PO (11:41)
[2016-12-25] MEDS ORDERED: ASA5GR PO (11:42)
[2016-12-25] MEDS ORDERED: IMDUR30 PO (11:48)
[2016-12-25] MEDS ORDERED: MIRALAX POWDER1 PKT PO ×2 (11:51→11:59)
[2016-12-25] MEDS ORDERED: SPIRIVA INH (11:52)
[2016-12-25] MEDS ORDERED: CYANO1000T PO (11:53)
[2016-12-25] MEDS ORDERED: ZOFRAN ODT4 MG SL (11:55)
[2016-12-25] MEDS ORDERED: V2 PO (11:56)
[2016-12-25] MEDS ORDERED: L20 PO (11:58)
[2016-12-25] MEDS ORDERED: SENTAB PO (12:01)
[2016-12-25] MEDS ORDERED: LEVEMIR SC (12:17)
[2016-12-25] MEDS ORDERED: NORCO1 TAB PO (12:32)
[2016-12-30] MEDS ORDERED: PERCOCET 10/3251 TAB PO (12:15)
[2016-12-30] MEDS ORDERED: DSS PO (12:18)
== END 2016-09-22 17:46 | disposition home or self-care (01) | DRG 272 ==
LOC: SDC 13:33 → 2SO 18:48
PROVIDERS: Anesthesiology; Student in an Organized Health Care Education/Training Program
PROC: B41D1ZZ Fluoroscopy of Aorta and Bilateral Lower Extremity Arteries using Low Osmolar Contrast (ICD-10-PCS; 2016-09-15)
PROC: 04CL3ZZ Extirpation of Matter from Left Femoral Artery, Percutaneous Approach (ICD-10-PCS; principal; 2016-09-15 15:15)
PROC: 047L3ZZ Dilation of Left Femoral Artery, Percutaneous Approach (ICD-10-PCS; 2016-09-15 15:15)
PROC: 047N3ZZ Dilation of Left Popliteal Artery, Percutaneous Approach (ICD-10-PCS; 2016-09-15 15:15)
PROC: 04JY0ZZ Inspection of Lower Artery, Open Approach (ICD-10-PCS; 2016-09-17)
DX: I70.268 Atherosclerosis of native arteries of extremities with gangrene, other extremity (principal); Z89.619 Acquired absence of unspecified leg above knee; Z89.611 Acquired absence of right leg above knee; I10 Essential (primary) hypertension; I70.223 Atherosclerosis of native arteries of extremities with rest pain, bilateral legs; E11.9 Type 2 diabetes mellitus without complications; E78.5 Hyperlipidemia, unspecified; M06.9 Rheumatoid arthritis, unspecified; F32.9 Major depressive disorder, single episode, unspecified; K21.9 Gastro-esophageal reflux disease without esophagitis; E53.8 Deficiency of other specified B group vitamins; M81.0 Age-related osteoporosis without current pathological fracture; I25.10 Atherosclerotic heart disease of native coronary artery without angina pectoris; L98.491 Non-pressure chronic ulcer of skin of other sites limited to breakdown of skin; Z96.653 Presence of artificial knee joint, bilateral; Z83.3 Family history of diabetes mellitus; Z88.5 Allergy status to narcotic agent; Z95.5 Presence of coronary angioplasty implant and graft; Z82.49 Family history of ischemic heart disease and other diseases of the circulatory system; Z98.890 Other specified postprocedural states
CPT/HCPCS: 35741; 36415; 37225; 75625; 75710; 80048; 82330; 82947; 82962; 85014; 85018; 85025; 85610; 85730; 86850; 86900; 86901; 93005; A9270-GY; C1724; C1725; C1769; C1884; C1894; J0610; J0690; J2250; J2270; J2370; J2405; J2710; J3010; Q9966

== ENCOUNTER 2016-09-29 12:52 | Inpatient (IN) | payer OTHER ==
--- NOTE | ~2016-09-29 | CN ---
Consultation Report [facility] [address] [place]. [address] NAME: BRENNAN YUAN : 45 STATUS : ADM IN [facility]#: [id number] AGE: 70 ADM/REG DATE : 09/29/16 MR#: [id number] REPORT SERV DATE: 10/02/16 DICTATED BY: BERRY ANNA DATE: 10/02/16 REPORT STATUS : Draft TRANSCRIBED BY: MODL DATE: 10/02/16 CONSULTATION DATE OF CONSULTATION: 10/02/2016 REASON FOR CONSULTATION: Low blood sugars. HISTORY OF PRESENT ILLNESS: The patient is a 70-year-old female. She has a past medical history significant for CAD, hypertension, and diabetes. She is here for vascular intervention and reason for consultation is low blood sugars. The patient states she normally runs fairly tight control. She believes her last A1c was 6. She has been given Amaryl here, and she has had several low blood sugars. She relates that possibly also to her decreased appetite. She is currently scheduled to go to rehab tomorrow, but was held an additional day due to her low blood sugars. She is otherwise without complaints currently. PAST MEDICAL HISTORY: As covered above. PAST SURGICAL HISTORY: She has had a prior cardiac stent, knee replacements, hysterectomy, elbow and wrist surgery, cholecystectomy, and right foot and toe surgery. CURRENT MEDICATIONS: Per her home was Pacerone 100 one per day, aspirin 81, Lipitor 20, Cardizem CD 120, Neurontin 300 b.i.d., Amaryl 1 mg, Plaquenil 200 b.i.d., Arava 20 q.48, Prinzide 20/12.5 half tablet every morning, Imodium 2 mg, Glucophage 1000 b.i.d., Lopressor 25 b.i.d., Prilosec 20, Zofran 4, Percocet 5/325, prednisone 5, and Genteal 1 drop p.r.n. ALLERGIES: LATEX. FAMILY HISTORY: Mother had CHF. Father had an IA. SOCIAL HISTORY: Nondrinker, nonsmoker. REVIEW OF SYSTEMS: She is currently not complaining of shortness of breath, chest pain, or palpitations. She has had some decreased p.o. and nausea. Otherwise, review of systems is negative. PHYSICAL EXAMINATION: VITAL SIGNS: BP 114/47, sat 95%, temp 98.3, pulse 86, and respirations 16. GENERAL: She is alert and oriented, in no acute distress. HEENT: Normocephalic, atraumatic. Sclerae nonicteric. NECK: Supple. HEART: Regular rate and rhythm. LUNGS: Clear to auscultation. ABDOMEN: Nontender. Nondistended. NEUROLOGIC: Grossly nonfocal. Consultation Report [place] [id number] [place]. [address] NAME: BRENNAN YUAN : 45 STATUS : ADM IN [facility]#: [id number] AGE: 70 ADM/REG DATE : 09/29/16 MR#: [id number] REPORT SERV DATE: 10/02/16 DICTATED BY: BERRY ANNA DATE: 10/02/16 REPORT STATUS : Draft TRANSCRIBED BY: SARAI DATE: 10/02/16 LABORATORY DATA: Per the lab on 10/01/2016: Sodium 140, potassium 4.2, chloride 102, CO2 of 29, BUN creatinine are 11 and 0.81. There is an A1c from May of this year, A1c was 7.4. Per 10/01/2016; white count 19.3, H and H are 8 and 26.1, and platelets of 302. Blood sugars here on the customer operations intern on 09/30/2016 showed a blood sugar of 37. Later that same morning a blood sugar of 50. On 10/01/2016, she averaged 70 to 170. On 10/02/2016, customer operations intern, she was 36 and 44. It appears her last dose of Amaryl was on 10/01/2016 at 0800 hours. ASSESSMENT: Hypoglycemia. PLAN: We will continue to follow until the patient leaves on discharge. We will monitor sugars closely. Check an A1c. D5 if needed. Hold her Amaryl, I am not certain if she has received any contrast dye. We will confirm before she restarts any Glucophage. We will leave a very mild sliding scale in case she gets hyperglycemic. Thank you for the consultation. [facility]/SARAI Berry Anna M.D. / [id number] CC: MD Amy Lee M.D.
--- NOTE | ~2016-09-29 | DS ---
Discharge Summary [facility] [address] [place]. [address] NAME: BRENNAN YUAN : 45 STATUS : DIS IN PAT#: [id number] AGE: 71 ADM/REG DATE : 09/29/16 MR#: [id number] REPORT SERV DATE: 10/16/16 DICTATED BY: ADIN STANLEY DATE: 10/15/16 REPORT STATUS : Draft TRANSCRIBED BY: SARAI DATE: 10/15/16 Data Collection from hospitalization DISCHARGE DIAGNOSES: 1. Severe left foot pain associated with ischemia. 2. Hypertension. 3. Diabetes. 4. Hyperlipidemia. 5. Vitamin B12 deficiency. 6. Osteoporosis. 7. Osteopenia. 8. Peripheral vascular disease. 9. Rheumatoid arthritis. 10.Depression. 11.Gastroesophageal reflux disease. CONSULTATIONS: Dr. Lalit Hanna, Dr. Adin Brizuela. PROCEDURES PERFORMED: Left qmunr-jxh-afsg amputation, 09/29/2016. 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 MEDICATIONS: Aspirin 81 mg every morning, Lipitor 20 mg every evening, Pacerone 100 mg every morning, Cardizem CD 120 mg every morning, Lovenox 40 mg subcutaneously every 24 hours, Neurontin 300 mg twice a day, hydrochlorothiazide 6.25 mg daily, Plaquenil 200 mg twice a day, NovoLog injection insulin as instructed, Arava 20 mg every 48 hours, Prinivil 10 mg daily, Prinzide half tablet every morning, Lopressor 25 mg twice a day, Protonix 40 mg before breakfast, Prilosec 20 mg every morning, Deltasone 5 mg every morning, liquid tears one drop in both eyes daily as needed, dextrose 25 mL IV as needed and 50 mL IV as needed, Colace 100 mg twice a day as needed, glucagon 1 mg IM as needed, glucose tablets three to six tablets as needed, Imodium 2 mg as needed, nitroglycerin 0.4 mg sublingually as needed, Zofran as instructed, Percocet 5/325 one to two tablets every four hours as needed, GenTeal one drop in the eyes as needed, Percocet 5/325 one tablet every six hours as needed. CONDITION AT DISCHARGE: Stable. DISPOSITION: The patient was discharged to the [facility] on an 1800- calorie diabetic diet with activities as instructed. HOSPITAL COURSE: This is a 71-year-old female, ho has severe calcific vascular disease with unimprovable occlusive disease distally. She had severe foot pain related to her ischemia. Treatment options were discussed and it was elected to proceed with surgical intervention. She was admitted to the hospital at this time for further evaluation and treatment. Upon admission, she was taken to the operating room, where she underwent the above-mentioned procedure. She tolerated this well and there were no complications. On postop day one, her dressings were clean, dry, and intact. She had no nausea or vomiting. On postop day two, Discharge Summary [facility] [address] [place]. [address] NAME: BRENNAN YUAN : 45 STATUS : DIS IN [facility]#: [id number] AGE: 71 ADM/REG DATE : 09/29/16 MR#: [id number] REPORT SERV DATE: 10/16/16 DICTATED BY: DAIN STANLEY DATE: 10/15/16 REPORT STATUS : Draft TRANSCRIBED BY: SARAI DATE: 10/15/16 she was alert and cooperative. A Smith catheter was removed and then replaced. She was evaluated by Physical Therapy. On 10/02/2016, she was seen by Dr. Lalit Hanna regarding low blood sugars. The patient said she normally runs fairly tight control. She believes that her last hemoglobin A1c was 6. She had being given Amaryl here. She had had several low blood sugars. She related that possibly to her decreased appetite. We would monitor her sugars closely. Hemoglobin A1c was going to be checked. D5 would be given as needed. Amaryl was held. Very mild sliding scale would be continued in case she were to get hyperglycemic. On 10/03/2016, she was doing well, but still had some pain along the left lower extremity. She was afebrile. Blood glucose level was still low, despite being off medication. Bladder training was being performed. She was seen in consultation by Dr. Adin Brizuela regarding urinary retention. A Smith catheter was placed. She denied previous voiding dysfunction. She denied any hematuria or other urologic problems. White count was 17.2. Creatinine was 0.95. Acute urinary retention was not uncommon in the elderly population. He recommended leaving the catheter for a total of five days. The catheter could be removed at rehab. If they were not comfortable doing this, he would see her in the clinic to remove the catheter. Over the next couple of days, she continued to do well. Discharge planning was performed. On 10/06/2016, discharge instructions were given. Due to her improved and stable condition, she was discharged to [facility] with the above-stated instructions. Information collected by: Scarlet Rhodes I submit the above information as my discharge summary. DYLAN/SARAI Adin Stanley MD / [id number] CC: MD Amy Lee M.D. Jeffrey K. Mullins, MD [facility]
--- NOTE | ~2016-09-29 | CN ---
Consultation Report [place] [id number] [facility] [place]. [address] NAME: BRENNAN SPIVEY : 45 STATUS : ADM IN PAT#: [id number] AGE: 70 ADM/REG DATE : 09/29/16 MR#: [id number] REPORT SERV DATE: 10/03/16 DICTATED BY: ADIN BRIZUELA DATE: 10/03/16 REPORT STATUS : Draft TRANSCRIBED BY: MODL DATE: 10/03/16 CONSULTATION DATE OF CONSULTATION: 10/03/2016 REASON FOR CONSULTATION: Urinary retention. HISTORY OF PRESENT ILLNESS: Ms. Spivey is a 70-year-old female with multiple medical comorbidities. She underwent a left BKA yesterday. Postoperatively, she was found to have urinary retention. A Smith catheter was placed. She denies previous voiding dysfunction. She denies hematuria or other urologic problems. PAST MEDICAL HISTORY: Notable for coronary artery disease, hypertension, diabetes, and vascular disease. PAST SURGICAL HISTORY: Cardiac stents, knee replacement, jnelk-pzb-hcpj amputation, hysterectomy, elbow and wrist surgeries, cholecystectomy, and right foot and toe surgery. MEDICATIONS: Reviewed and listed in the chart. ALLERGIES: LATEX. FAMILY HISTORY: Congestive heart failure. Her father had a myocardial infarction. SOCIAL HISTORY: She does not smoke, drink, or use illegal drugs. She is accompanied by her . REVIEW OF SYSTEMS: A 12-point review of systems was performed. Pertinent positives are listed in the HPI. PHYSICAL EXAMINATION: VITAL SIGNS: Her temperature is 98.5, pulse 82, blood pressure 110/52, and saturating 99% on 2 L nasal cannula. GENERAL: She is in no acute distress. She appears her stated age. HEENT: Head is normocephalic and atraumatic. LUNGS: Breathing is nonlabored. She is not in respiratory distress. HEART: Pulse is regular in rate and rhythm. ABDOMEN: Soft, nontender, nondistended. She has no CVA tenderness. GENITOURINARY: Her Smith catheter is in place. Urine is clear. EXTREMITIES: No cyanosis or edema. NEUROLOGIC: She is alert and oriented x3. IMAGING: No pertinent imaging. Consultation Report [place] [id number] [facility] [place]. [address] NAME: BRENNAN SPIVEY : 45 STATUS : ADM IN PAT#: [id number] AGE: 70 ADM/REG DATE : 09/29/16 MR#: [id number] REPORT SERV DATE: 10/03/16 DICTATED BY: ADIN BRIZUELA DATE: 10/03/16 REPORT STATUS : Draft TRANSCRIBED BY: SARAI DATE: 10/03/16 LABORATORY DATA: White count was 17.2 and hemoglobin 7.0. Creatinine is 0.95. Urinalysis is negative for infection. ASSESSMENT AND PLAN: Acute urinary retention. Ms. Spivey is a 70-year-old female with acute urinary retention after a leg amputation. This is not uncommon in the elderly population. Recommend leaving the catheter for a total of five days. She is discharged to rehab. Catheter can be removed at rehab. However, if they are not comfortable doing this, I am happy to see her in my clinic to remove the catheter. My number is [phone]. Thank you for this consultation. Please call with further questions. HUMAIRA/SARAI Adin Brizuela MD / [id number] CC: MD Amy Thonrton M.D.
--- NOTE | ~2016-09-29 | OP ---
Record Of Operation [facility] [address] [place]. [address] NAME: BRENNAN SPIVEY : 45 STATUS : ADM IN PAT#: [id number] AGE: 70 ADM/REG DATE : 09/29/16 MR#: [id number] REPORT SERV DATE: 10/02/16 DICTATED BY: ADIN STANLEY DATE: 10/02/16 REPORT STATUS : Draft TRANSCRIBED BY: MODL DATE: 10/02/16 DATE OF PROCEDURE: 09/29/2016 TAKER OFF BRAKER MACHINE: Aman. PREPROCEDURE DIAGNOSIS: Severe left foot pain associated with ischemia. POSTPROCEDURE DIAGNOSIS: Severe left foot pain associated with ischemia. PROCEDURE PERFORMED: Left below-knee amputation. ANESTHETIC: General. SPECIMENS: Left foot and distal leg. BLOOD LOSS: 20 mL. COMPLICATIONS: None. INDICATIONS: Brennan Spivey is 70-year-old, has severe calcific vascular disease with unimprovable occlusive disease distally. She was offered amputation due to severe foot pain related to her ischemia. Risks, benefits, and alternatives were discussed. She understood and wished to proceed. OPERATIVE COURSE: The patient was brought to the operating and placed in supine position on the operating room table. The patient had general anesthetic without complications. Left leg was prepped and draped in a sterile fashion. A time-out was performed. Identified the correct patient, procedure, and site. We began by making a transverse incision, 8 cm distal to the tibial tuberosity. We carried this around the circumference of the leg two-thirds the way of the circumference. We then made incisions longitudinally down the leg. We used cautery to divide the subcutaneous tissue and fascia in all locations. We then divided the anterior compartment musculature with Bovie cautery. We identified the anterior tibial neurovascular bundle and divided it between ligatures. We then cleaned off the periosteum of the tibia and fibular surfaces. We divided the tibia at the skin level using a Gigli saw. The fibula was divided using a bone shear just cephalad to this level. We then transected the posterior flap off the posterior portion of the fibula using a Margaret knife. We identified the peroneal and posterior tibial neurovascular bundles. We isolated these and suture ligated them high in the wound. The remainder of the musculature was debulked to make a nice posterior flap. The skin and flap were trimmed to fit the wound. The wound was copiously irrigated with saline. Hemostasis was obtained with cautery. We then attached the deeper layers together using interrupted 2-0 Vicryl suture. The subdermal layers were closed with interrupted 3-0 Vicryl suture. The skin was closed with a skin stapler. Sterile dressing was applied. The patient tolerated the procedure well. She was awakened and transferred to recovery in stable condition. Record Of Operation [address] [place]. [address] NAME: BRENNAN SPIVEY : 45 STATUS : ADM IN PAT#: [id number] AGE: 70 ADM/REG DATE : 09/29/16 MR#: [id number] REPORT SERV DATE: 10/02/16 DICTATED BY: ADIN STANLEY DATE: 10/02/16 REPORT STATUS : Draft TRANSCRIBED BY: SARAI DATE: 10/02/16 MELANIE/SARAI Adin Stanley MD / [id number] CC: MD Amy Lee M.D.
[~2016-09-29 12:52] MED LIST changes: +ZOFRAN4 PO
[2016-10-01 04:49] LABS: BASOPHILS 0.2 %; BASOPHILS ABSOLUTE 0.04 10/3/uL (0.0-0.16); EOSINOPHILS 0.5 %; HEMATOCRIT 26.1 % (36.0-48.0); IMMATURE GRANULOCYTES 0.8 %; IMMATURE GRANULOCYTES ABSOLUTE 0.16 10/3/uL (0.0-0.11); LYMPHOCYTES 11.3 %; LYMPHOCYTES ABSOLUTE 2.18 10/3/uL (0.67-4.30); MEAN CORPUS HGB CONC 30.7 g/dL (32.0-36.0); MEAN CORPUSCULAR HEMOGLOB 28.1 pg (26.0-34.0); MEAN CORPUSCULAR VOLUME 91.6 fL (80-100); MEAN PLATELET VOLUME 9.4 fL (9.2-13.0); MONOCYTES 9.6 %; MONOCYTES ABSOLUTE 1.86 10/3/uL (0.21-1.20); NEUTROPHILS 77.6 %; NEUTROPHILS ABSOLUTE 14.98 10/3/uL (2.02-8.40); PLATELET COUNT 302 10/3/uL (150-400); RBC DISTRIBUTION WIDTH 16.1 % (12.0-16.0); RED CELL COUNT 2.85 10/6/uL (4.0-5.6); WHITE BLOOD CELLS 19.3 10/3/uL (4.5-10.5)
[2016-10-01 04:50] LABS: MANUAL DIFF NO %
[2016-10-01 05:01] LABS: BUN (BLOOD UREA NITROGEN) 11 MG/DL (6-23); CHLORIDE, SERUM 102 MMOL/L (96-112); CO2 (CARBON DIOXIDE) 29 MMOL/L (24-34); CREATININE 0.81 MG/DL (0.55-1.02); GFR AFRICAN AMERICAN 85 ML/MIN (>=60); GFR NON AFRICAN AMERICAN 74 ML/MIN (>=60); POTASSIUM, SERUM 4.2 MMOL/L (3.5-5.3); SODIUM, SERUM 140 MMOL/L (135-148)
[2016-10-01 05:02] LABS: CALCIUM, SERUM 6.8 MG/DL (8.5-10.4); GLUCOSE, SERUM 104 MG/DL (60-99)
[2016-10-03 10:51] LABS: BASOPHILS 0.2 %; BASOPHILS ABSOLUTE 0.04 10/3/uL (0.0-0.16); EOSINOPHILS 0.6 %; HEMATOCRIT 24.3 % (36.0-48.0); IMMATURE GRANULOCYTES 0.9 %; IMMATURE GRANULOCYTES ABSOLUTE 0.15 10/3/uL (0.0-0.11); LYMPHOCYTES 11.3 %; LYMPHOCYTES ABSOLUTE 1.94 10/3/uL (0.67-4.30); MEAN CORPUSCULAR HEMOGLOB 27.1 pg (26.0-34.0); MEAN CORPUSCULAR VOLUME 94.2 fL (80-100); MEAN PLATELET VOLUME 9.5 fL (9.2-13.0); MONOCYTES 8.4 %; MONOCYTES ABSOLUTE 1.44 10/3/uL (0.21-1.20); NEUTROPHILS 78.6 %; NEUTROPHILS ABSOLUTE 13.57 10/3/uL (2.02-8.40); PLATELET COUNT 241 10/3/uL (150-400); RED CELL COUNT 2.58 10/6/uL (4.0-5.6); WHITE BLOOD CELLS 17.2 10/3/uL (4.5-10.5)
[2016-10-03 10:53] LABS: MANUAL DIFF NO %; MEAN CORPUS HGB CONC 28.8 g/dL (32.0-36.0)
[2016-10-03 11:02] LABS: CALCIUM, SERUM 7.2 MG/DL (8.5-10.4); CHLORIDE, SERUM 100 MMOL/L (96-112); CO2 (CARBON DIOXIDE) 28 MMOL/L (24-34); CREATININE 0.95 MG/DL (0.55-1.02); GFR AFRICAN AMERICAN 70 ML/MIN (>=60); GFR NON AFRICAN AMERICAN 61 ML/MIN (>=60); POTASSIUM, SERUM 4.4 MMOL/L (3.5-5.3); SODIUM, SERUM 137 MMOL/L (135-148)
[2016-10-03 11:03] LABS: BUN (BLOOD UREA NITROGEN) 16 MG/DL (6-23); GLUCOSE, SERUM 140 MG/DL (60-99)
[2016-10-03 16:44] LABS: ASCORBIC ACID (UR NOT ORDER) NEG (NEG); BILIRUBIN, URINE NEGATIVE (NEG); KETONE, URINE NEGATIVE (NEG); LEUKOCYTE ESTERASE(NOT OR LARGE (NEG)
[2016-10-03 16:45] LABS: WBC (NOT ORDERED) (RFLEX) > 182 (0-5)
[2016-11-04] MEDS ORDERED: KAYEXUD PO (17:34)
[2016-11-04] MEDS ORDERED: NEUR300 PO (17:35)
[2016-11-04] MEDS ORDERED: LIPITOR20 PO (17:35)
[2016-11-04] MEDS ORDERED: LEVAQUIN5T PO (17:37)
[2016-11-04] MEDS ORDERED: NEUR600 PO (17:38)
[2016-11-04] MEDS ORDERED: AMOXIL500 MG PO (17:39)
[2016-11-04] MEDS ORDERED: PRILOSEC OTC20 MG PO (17:40)
[2016-11-04] MEDS ORDERED: LOP25 PO (17:41)
[2016-11-04] MEDS ORDERED: PLAQ200B PO (17:41)
[2016-11-04] MEDS ORDERED: VITC500 PO (17:42)
[2016-11-04] MEDS ORDERED: FERROUS SULF325 M1 PO (17:42)
[2016-11-04] MEDS ORDERED: CARDCD120 PO (17:43)
[2016-11-04] MEDS ORDERED: ACIDOPHILU2 PO (17:43)
[2016-11-04] MEDS ORDERED: PACERONE100 MG PO (17:43)
[2016-11-04] MEDS ORDERED: P5 PO (17:44)
[2016-11-04] MEDS ORDERED: PRIN10 PO (17:44)
[2016-11-04] MEDS ORDERED: HCTZ12.5 PO (17:45)
[2016-11-04] MEDS ORDERED: MULTIPLE VIT PO (17:45)
[2016-11-04] MEDS ORDERED: CYMBALTA30 PO (17:45)
[2016-11-04] MEDS ORDERED: GLUCPH PO (17:46)
[2016-11-04] MEDS ORDERED: ROCEPH IM (17:47)
[2016-11-04] MEDS ORDERED: ARAVA20 PO (17:47)
[2016-11-04] MEDS ORDERED: HUMALOG SC (17:49)
[2016-11-04] MEDS ORDERED: ASABAYER PO (17:51)
[2016-11-04] MEDS ORDERED: ZOFRAN8 PO (17:52)
[2016-11-04] MEDS ORDERED: PERCOCET 10/3251 TAB PO (17:52)
[2016-11-07] MEDS ORDERED: IODOSORB TOP (17:41)
[2016-11-07] MEDS ORDERED: ACET500CAP PO (17:47)
[2016-11-19] MEDS ORDERED: NEUR300 PO (21:16)
[2016-11-19] MEDS ORDERED: LIPITOR20 PO (21:17)
[2016-11-19] MEDS ORDERED: FERROUS SULF325 M1 PO (21:17)
[2016-11-19] MEDS ORDERED: NEUR600 PO (21:17)
[2016-11-19] MEDS ORDERED: VITC500 PO (21:18)
[2016-11-19] MEDS ORDERED: PRILOSEC40 MG PO (21:18)
[2016-11-19] MEDS ORDERED: LOP25 PO (21:19)
[2016-11-19] MEDS ORDERED: PLAQ200B PO (21:19)
[2016-11-19] MEDS ORDERED: CYMBALTA60 PO (21:20)
[2016-11-19] MEDS ORDERED: MULTIVITAMI1 PO (21:20)
[2016-11-19] MEDS ORDERED: PACERONE100 MG PO (21:20)
[2016-11-19] MEDS ORDERED: P5 PO (21:21)
[2016-11-19] MEDS ORDERED: GLUCPH PO (21:22)
[2016-11-19] MEDS ORDERED: PRIN10 PO (21:22)
[2016-11-19] MEDS ORDERED: CARDCD120 PO (21:46)
[2016-11-19] MEDS ORDERED: ARAVA20 PO (21:50)
[2016-11-19] MEDS ORDERED: HUMALOG SC (21:50)
[2016-11-19] MEDS ORDERED: ASABAYER PO (21:52)
[2016-11-19] MEDS ORDERED: PERCOCET 10/3251 TAB PO (21:52)
[2016-12-25] MEDS ORDERED: DSS PO (11:32)
[2016-12-25] MEDS ORDERED: ZINC220C PO (11:33)
[2016-12-25] MEDS ORDERED: XOPEN0.5ML INH ×2 (11:35→11:46)
[2016-12-25] MEDS ORDERED: MUCINEX600 MG PO (11:36)
[2016-12-25] MEDS ORDERED: DULERA 200 MCG/13 GM INH (11:37)
[2016-12-25] MEDS ORDERED: VITC500 PO (11:38)
[2016-12-25] MEDS ORDERED: ACIDOPHILUS PO (11:39)
[2016-12-25] MEDS ORDERED: LOP25 PO (11:41)
[2016-12-25] MEDS ORDERED: ASA5GR PO (11:42)
[2016-12-25] MEDS ORDERED: IMDUR30 PO (11:48)
[2016-12-25] MEDS ORDERED: MIRALAX POWDER1 PKT PO ×2 (11:51→11:59)
[2016-12-25] MEDS ORDERED: SPIRIVA INH (11:52)
[2016-12-25] MEDS ORDERED: CYANO1000T PO (11:53)
[2016-12-25] MEDS ORDERED: ZOFRAN ODT4 MG SL (11:55)
[2016-12-25] MEDS ORDERED: V2 PO (11:56)
[2016-12-25] MEDS ORDERED: L20 PO (11:58)
[2016-12-25] MEDS ORDERED: SENTAB PO (12:01)
[2016-12-25] MEDS ORDERED: LEVEMIR SC (12:17)
[2016-12-25] MEDS ORDERED: NORCO1 TAB PO (12:32)
[2016-12-30] MEDS ORDERED: PERCOCET 10/3251 TAB PO (12:15)
[2016-12-30] MEDS ORDERED: DSS PO (12:18)
== END 2016-10-06 11:26 | DRG 240 ==
LOC: SDC/OF 12:52 → PACU 17:32 → 2SO 19:08
PROVIDERS: Student in an Organized Health Care Education/Training Program
PROC: 0Y6J0Z1 Detachment at Left Lower Leg, High, Open Approach (ICD-10-PCS; principal; 2016-09-29 14:15)
PROC: 0T9B70Z Drainage of Bladder with Drainage Device, Via Natural or Artificial Opening (ICD-10-PCS; 2016-10-04)
DX: I70.223 Atherosclerosis of native arteries of extremities with rest pain, bilateral legs (principal); N39.0 Urinary tract infection, site not specified; E11.649 Type 2 diabetes mellitus with hypoglycemia without coma; E11.51 Type 2 diabetes mellitus with diabetic peripheral angiopathy without gangrene; E11.65 Type 2 diabetes mellitus with hyperglycemia; E78.5 Hyperlipidemia, unspecified; E53.8 Deficiency of other specified B group vitamins; M81.0 Age-related osteoporosis without current pathological fracture; N18.9 Chronic kidney disease, unspecified; I48.91 Unspecified atrial fibrillation; I12.9 Hypertensive chronic kidney disease with stage 1 through stage 4 chronic kidney disease, or unspecified chronic kidney disease; M85.80 Other specified disorders of bone density and structure, unspecified site; I25.10 Atherosclerotic heart disease of native coronary artery without angina pectoris; M06.9 Rheumatoid arthritis, unspecified; F32.9 Major depressive disorder, single episode, unspecified; K21.9 Gastro-esophageal reflux disease without esophagitis; R33.9 Retention of urine, unspecified; Z96.653 Presence of artificial knee joint, bilateral; Z79.4 Long term (current) use of insulin; Z83.3 Family history of diabetes mellitus; Z88.5 Allergy status to narcotic agent; Z95.5 Presence of coronary angioplasty implant and graft; Z82.49 Family history of ischemic heart disease and other diseases of the circulatory system; Z98.890 Other specified postprocedural states; Z89.619 Acquired absence of unspecified leg above knee
CPT/HCPCS: 71010; 80048; 81001; 82330; 82947; 82962; 83036; 85025; 87077; 87086; 87186; 88307; 88311; 97110-GP; 97163-GP; A9270-GY; J0610; J0690; J1170; J2250; J2405; J2710; J3010